=== PATIENT | female | born 1985 | race African-American/Black ===

== ENCOUNTER 2016-06-15 12:17 | Emergency (ER) | payer BC ==
[~2016-06-15] VITALS: Ht 170.2 cm; Wt 65.3 kg
[2016-06-15 12:45] VITALS: BP 114/66
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
[2016-06-15] MEDS ORDERED: NAPROXEN 500 MG TABLET PO ONE (13:15)
[2016-06-15 13:43] LABS: BILIRUBIN,URINE NEGATIVE (NEG); GLUCOSE,URINE NEGATIVE (NEG); NITRITE,URINE NEGATIVE (NEG); PH,URINE 7.5; PROTEIN,URINE NEGATIVE (NEG-TRACE); UROBILINOGEN,URINE 0.2 mg/dL (0.2 mg/dL)
[2016-06-15 14:03] LABS: RBC,URINE 0 /HPF (0-2)
[2016-06-15 14:04] LABS: BACTERIA,URINE 0 /HPF (0-FEW); SQUAMOUS EPITHELIAL CELL,UR OCC /LPF; WBC,URINE OCC /HPF (0-4)
[2016-06-15] MEDS ORDERED: METR500T4 PO (15:27)
== END 2016-06-15 15:39 | disposition home or self-care (01) ==
LOC: ER 12:17
DX: N76.0 Acute vaginitis (principal); B96.89 Other specified bacterial agents as the cause of diseases classified elsewhere; F12.10 Cannabis abuse, uncomplicated; Z88.6 Allergy status to analgesic agent
CPT/HCPCS: 81001; 81025; 99284; Q0111

== ENCOUNTER 2017-08-22 04:33 | Emergency (ER) | payer SELFPAY ==
[2017-08-22] MEDS: NAPROXEN 500 MG TABLET PO (05:05)
== END 2017-08-22 05:23 | disposition home or self-care (01) ==
LOC: ER 04:33
DX: K08.89 Other specified disorders of teeth and supporting structures (principal); R68.84 Jaw pain; Z88.6 Allergy status to analgesic agent
CPT/HCPCS: 99283

== ENCOUNTER 2018-03-22 00:40 | Emergency (ER) | payer SELFPAY ==
[~2018-03-22] VITALS: Ht 170.2 cm; Wt 72.6 kg
[2018-03-22 00:40] VITALS: BP 125/63
[~2018-03-22 00:40] MED LIST: AMOX400S2 PO; HYDR-3164 PO; METR-84 PO; NAPR-683 PO; OXYC5CAP PO
[2018-03-22] MEDS ORDERED: AZIT250T PO (01:26)
[2018-03-22] MEDS ORDERED: CODE10LI PO (01:26)
[2018-03-22] MEDS ORDERED: AZITHROMYCIN 250 MG TABLET. PO ONE (01:30)
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
== END 2018-03-22 01:45 | disposition home or self-care (01) ==
LOC: ER 00:40
DX: J40 Bronchitis, not specified as acute or chronic (principal); J04.0 Acute laryngitis; F41.9 Anxiety disorder, unspecified; F31.9 Bipolar disorder, unspecified; F43.10 Post-traumatic stress disorder, unspecified; F17.210 Nicotine dependence, cigarettes, uncomplicated; F10.20 Alcohol dependence, uncomplicated; Y90.9 Presence of alcohol in blood, level not specified
CPT/HCPCS: 99283; Q0144

== ENCOUNTER 2018-08-16 20:17 | Emergency (ER) | payer SELFPAY ==
[~2018-08-16] VITALS: Ht 170.2 cm; Wt 72.6 kg
[~2018-08-16 20:17] MED LIST changes: +AZIT250T PO; +CODE10LI PO; +METR-34 PO; -METR-84 PO
[2018-08-16 21:12] VITALS: BP 104/69
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
== END 2018-08-16 21:55 | disposition home or self-care (01) ==
LOC: ER 20:17
DX: J02.8 Acute pharyngitis due to other specified organisms (principal); B97.89 Other viral agents as the cause of diseases classified elsewhere; F41.9 Anxiety disorder, unspecified; F31.9 Bipolar disorder, unspecified; F10.20 Alcohol dependence, uncomplicated; Y90.9 Presence of alcohol in blood, level not specified
CPT/HCPCS: 87070; 87880; 99283